=== PATIENT | female | born 1990 | race Caucasian/White ===

== ENCOUNTER 2016-07-29 19:44 | Inpatient (IN) | payer OTHER ==
[~2016-07-29] VITALS: Ht 167.6 cm; Wt 90.7 kg
[~2016-07-29 19:44] MED LIST: NOCURR
[2016-07-29] MEDS ORDERED: RINGERS SOLUTION,LACTATED 1,000 ML IV ONE (20:48)
[2016-07-29] MEDS ORDERED: OXYTOCIN 30 UNITS/LACT RINGERS 500 ML IV ONE (20:48)
[2016-07-29] MEDS ORDERED: CITRIC ACID/SODIUM CITRATE 30 ML SOLUTION UDCUP PO PRN (21:00)
[2016-07-29] MEDS ORDERED: LIDOCAINE HCL/PF 1% 30 ML VIAL INJ PRN (21:00)
[2016-07-29] MEDS ORDERED: METOCLOPRAMIDE HCL 5 MG/ML 2 ML VIAL IVP PRN (21:00)
[2016-07-29 21:14] LABS: BASOPHILS % (AUTO) 0.3 % (0.0-2.0); EOSINOPHILS % (AUTO) 0.7 % (1.0-6.0); HEMATOCRIT 33.6 % (36-46); HEMOGLOBIN 10.9 g/dL (12.0-16.0); LYMPHOCYTES # (AUTO) 2.1 K/uL (1.0-4.8); LYMPHOCYTES % (AUTO) 22.1 % (22.0-44.0); MEAN CORPUSCULAR HEMOGLOBIN 29.1 pg (26.0-34.0); MEAN CORPUSCULAR HGB CONC 32.5 G/dL (31.0-37.0); MEAN CORPUSCULAR VOLUME 90 fL (80-100); MONOCYTES # (AUTO) 0.8 K/uL (0.1-1.0); MONOCYTES % (AUTO) 8.3 % (2.0-9.0); NEUTROPHILS # (AUTO) 6.4 K/uL (1.8-7.7); NEUTROPHILS % (AUTO) 68.6 % (40.0-70.0); RED BLOOD CELL COUNT(AUTO) 3.75 MIL/uL (4.00-5.20); RED CELL DISTRIBUTION WIDTH 14.2 % (11.5-14.5); WHITE BLOOD COUNT (AUTO) 9.4 K/uL (4.5-11.0)
[2016-07-29 21:59] LABS: RUBELLA SCREEN (IGG) IMMUNE (IMMUNE)
[2016-07-29] MEDS ORDERED: AMPICILLIN SODIUM 2 GM/NS 100 ML IV ONE (22:45)
[2016-07-29] MEDS: RINGERS SOLUTION,LACTATED 1,000 ML IV SCH ×2 (22:46→23:31)
[2016-07-29] MEDS ORDERED: FentaNYL/BUPIV 0.125%/NS/PF 200 ML ED ONE (23:04)
[2016-07-30] MEDS ORDERED: AMPICILLIN SODIUM 1 GM/NS 50 ML IV SCH (02:45)
[2016-07-30] MEDS ORDERED: OXYTOCIN 30 UNITS/LACT RINGERS 500 ML IV ONE (04:49)
[2016-07-30] MEDS ORDERED: MAGNESIUM HYDROXIDE SUSPENSION 30 ML UDCUP PO PRN (05:00)
[2016-07-30] MEDS ORDERED: LANOLIN 7 GM OINTMENT TP PRN (05:00)
[2016-07-30] MEDS ORDERED: OxyCODONE HCL/ACETAMINOPHEN 5-325 MG TABLET PO PRN ×2 (05:00)
[2016-07-30] MEDS ORDERED: LIDOCAINE HCL/PF 1% 30 ML VIAL INJ PRN (05:00)
[2016-07-30] MEDS ORDERED: GLYCERIN/WITCH HAZEL LEAF 40 PADS JAR TP PRN (05:00)
[2016-07-30] MEDS ORDERED: BENZOCAINE 20%/MENTHOL 56 GM SPRAY CANISTER TP PRN (05:00)
[2016-07-30 05:27] VITALS: BP 130/62
[2016-07-30] MEDS: IBUPROFEN 800 MG TABLET PO PRN ×2 (09:26→20:12)
[2016-07-30 11:00] VITALS: BP 128/63
[2016-07-31] MEDS: IBUPROFEN 800 MG TABLET PO PRN (03:54)
[2016-07-31 06:08] LABS: BASOPHILS # (AUTO) 0.03 K/uL (0.00-0.20); BASOPHILS % (AUTO) 0.3 % (0.0-2.0); EOSINOPHILS # (AUTO) 0.12 K/uL (0.00-0.70); EOSINOPHILS % (AUTO) 1.08 % (1.0-6.0); HEMATOCRIT 31.7 % (36-46); HEMOGLOBIN 10.7 g/dL (12.0-16.0); LYMPHOCYTES # (AUTO) 2.4 K/uL (1.0-4.8); LYMPHOCYTES % (AUTO) 22.2 % (22.0-44.0); MEAN CORPUSCULAR HEMOGLOBIN 30.6 pg (26.0-34.0); MEAN CORPUSCULAR HGB CONC 33.6 G/dL (31.0-37.0); MEAN CORPUSCULAR VOLUME 91 fL (80-100); MONOCYTES # (AUTO) 0.8 K/uL (0.1-1.0); MONOCYTES % (AUTO) 7.4 % (2.0-9.0); NEUTROPHILS # (AUTO) 7.5 K/uL (1.8-7.7); NEUTROPHILS % (AUTO) 69.1 % (40.0-70.0); RED BLOOD CELL COUNT(AUTO) 3.49 MIL/uL (4.00-5.20); RED CELL DISTRIBUTION WIDTH 14.3 % (11.5-14.5); WHITE BLOOD COUNT (AUTO) 10.8 K/uL (4.5-11.0)
[2016-07-31] MEDS ORDERED: IBUP-2070 PO (09:40)
[2016-07-31] MEDS ORDERED: DSS100 PO (09:41)
[2016-07-31] MEDS ORDERED: FERR-89 PO (09:43)
== END 2016-07-31 10:30 | disposition home or self-care (01) | DRG 775 ==
LOC: OBSVTOIN 19:44 → 4S 19:44
PROVIDERS: ADMIT Obstetrics & Gynecology; ATTEND Obstetrics & Gynecology
PROC: 10E0XZZ Delivery of Products of Conception, External Approach (ICD-10-PCS; principal; 2016-07-30)
DX: O99.824 Streptococcus B carrier state complicating childbirth (principal); Z37.0 Single live birth; Z3A.39 39 weeks gestation of pregnancy
CPT/HCPCS: 76811; 80307; 86592; 86762; 86850; 86900; 86901; 87340; 88307; J0290; J2590; J3490; J7120

== ENCOUNTER 2022-01-04 09:52 | Emergency (ER) | payer MEDICAID, OTHER, SELFPAY ==
[~2022-01-04] VITALS: Ht 167.6 cm; Wt 97.7 kg
[~2022-01-04 09:52] MED LIST changes: +DSS100 PO; +FERR325T27 PO; +IBUP-2070 PO; -NOCURR
[2022-01-04] MEDS ORDERED: TOPI100T37 PO (10:07)
[2022-01-04] MEDS ORDERED: BUPR200T8 PO (10:07)
[2022-01-04] MEDS ORDERED: ARIP15TA27 PO (10:07)
[2022-01-04] MEDS ORDERED: FLUO40CA PO (10:07)
[2022-01-04] MEDS ORDERED: SODIUM CHLORIDE 0.9% 1,000 ML IV ONE (10:15)
[2022-01-04] MEDS ORDERED: ONDANSETRON HCL 4 MG/2 ML VIAL IVP ONE (10:15)
[2022-01-04 10:16] LABS: COVID AG,FIA SOURCE NASAL SWAB
[2022-01-04 10:42] LABS: INFLUENZA TYPE A NEGATIVE FOR TYPE A (NEGATIVE); INFLUENZA TYPE B NEGATIVE FOR TYPE B (NEGATIVE)
[2022-01-04 10:47] LABS: BASOPHILS % (AUTO) 0.7 % (0.0-2.0); EOSINOPHILS % (AUTO) 1.2 % (1.0-6.0); HEMATOCRIT 33.5 % (36-46); HEMOGLOBIN 10.5 g/dL (12.0-16.0); LYMPHOCYTES % (AUTO) 23.9 % (22.0-44.0); MEAN CORPUSCULAR HEMOGLOBIN 25.3 pg (26.0-34.0); MEAN CORPUSCULAR HGB CONC 31.3 G/dL (31.0-37.0); MEAN CORPUSCULAR VOLUME 81 fL (80-100); MONOCYTES # (AUTO) 0.9 K/uL (0.1-1.0); MONOCYTES % (AUTO) 10.9 % (2.0-9.0); NEUTROPHILS # (AUTO) 5.3 K/uL (1.8-7.7); NEUTROPHILS % (AUTO) 63.3 % (40.0-70.0); PLATELET COUNT (AUTO) 218 K/uL (150-450); RED BLOOD CELL COUNT(AUTO) 4.15 MIL/uL (4.00-5.20); RED CELL DISTRIBUTION WIDTH 16.5 % (11.5-14.5)
[2022-01-04] MEDS ORDERED: ACETAMINOPHEN 500 MG TABLET PO ONE (11:00)
[2022-01-04] MEDS ORDERED: ONDANSETRON HCL 4 MG TABLET PO ONE (11:00)
[2022-01-04] MEDS ORDERED: ATOM80CA3 PO (11:15)
[2022-01-04 12:01] LABS: ANION GAP 10 mmol/L (8-16); CALCIUM, TOTAL 8.5 mg/dL (8.8-10.5); CARBON DIOXIDE 23 mmol/L (22-29); CHLORIDE 105 mmol/L (98-107); CREATININE 0.93 mg/dL (0.60-1.30); GLUCOSE,RANDOM 87 mg/dL (70-110); POTASSIUM 3.3 mmol/L (3.5-5.1); SODIUM SERUM 138 mmol/L (136-145); UREA NITROGEN, BLOOD 11 mg/dL (7-18)
[2022-01-04 12:03] LABS: APPEARANCE,URINE CLEAR (CLEAR); BILIRUBIN,URINE NEGATIVE (NEGATIVE); GLUCOSE, URINE (UA) NEGATIVE (NEGATIVE); KETONES,URINE NEGATIVE (NEGATIVE); LEUKOCYTE ESTERASE ,URINE TRACE (NEGATIVE); NITRATE,URINE NEGATIVE (NEGATIVE); OCCULT BLOOD,URINE MODERATE (NEGATIVE); PH,URINE 7.5 (5.0-8.0); PROTEIN,URINE NEGATIVE (NEGATIVE); SPECIFIC GRAVITIY, URINE 1.012 (1.003-1.030); UROBILINOGEN,URINE <=1.0 mg/dL (<=1.0)
[2022-01-04 12:03] LABS: GLOMERULAR FILTR. RATE CALC > 60 mL/min (>60)
[2022-01-04 12:13] LABS: ALANINE AMINOTRANSFERASE 20 U/L (12-78); ALBUMIN 3.4 g/dL (3.4-5.0); ASPARTATE AMINOTRANSFERASE 22 U/L (15-37); BILIRUBIN,TOTAL 0.1 mg/dL (0.1-1.0); HCG,QUANTITATIVE < 1 mIU/mL (0-6); LIPASE 154 U/L (73-393); TOTAL PROTEIN, SERUM 7.5 g/dL (6.4-8.2)
[2022-01-04 12:21] LABS: BACTERIA,URINE None Seen /HPF (None Seen); RBC,URINE 0-2 /HPF (0-2); SQUAMOUS EPITHELIAL CELL,UR Few /LPF (None Seen); WBC,URINE None Seen /HPF (0-5)
[2022-01-04 12:39] LABS: ALKALINE PHOSPHATASE 77 U/L (46-116)
[2022-01-04] MEDS ORDERED: POTASSIUM CHLORIDE 20 MEQ ER TABLET PO ONE (13:15)
[2022-01-04] MEDS ORDERED: ONDA-104 PO (14:38)
[2022-01-04 14:55] VITALS: BP 128/85
== END 2022-01-04 15:00 | disposition home or self-care (01) ==
LOC: EMS 10:01
DX: B34.9 Viral infection, unspecified (principal); Z20.822 Contact with and (suspected) exposure to COVID-19; F10.20 Alcohol dependence, uncomplicated; K92.1 Melena
CPT/HCPCS: 99284; 87426; 80053; 81001; 83690; 84702; 85025; 87804; 36415; Q0162; J2405

== ENCOUNTER 2022-11-16 12:29 | Emergency (ER) | payer OTHER ==
[~2022-11-16] VITALS: Ht 167.6 cm; Wt 86.4 kg
[~2022-11-16 12:29] MED LIST changes: +ARIP15TA27 PO; +ATOM80CA3 PO; +BUPR200T8 PO; -DSS100 PO; -FERR325T27 PO; +FLUO40CA PO; -IBUP-2070 PO; +ONDA-104 PO; +TOPI100T37 PO
[2022-11-16 12:38] VITALS: TEMP 97.5
[2022-11-16 14:13] VITALS: BP 115/58; PULSE 71; RESP 16
[2022-11-16] MEDS ORDERED: IBUP-1554 PO (14:58)
[2022-11-16] MEDS ORDERED: HYDR-4072 PO (14:58)
[2022-11-16] MEDS ORDERED: METH-812 PO (14:58)
== END 2022-11-16 15:06 | disposition home or self-care (01) ==
LOC: EMS 12:38
DX: M62.838 Other muscle spasm (principal); R20.0 Anesthesia of skin; F41.9 Anxiety disorder, unspecified; F32.A Depression, unspecified; F17.210 Nicotine dependence, cigarettes, uncomplicated; F12.90 Cannabis use, unspecified, uncomplicated
CPT/HCPCS: 99283; Z7502

== ENCOUNTER 2022-11-30 16:59 | Emergency (ER) | payer OTHER ==
[~2022-11-30] VITALS: Ht 167.6 cm; Wt 86.4 kg
[~2022-11-30 16:59] MED LIST changes: -ARIP15TA27 PO; -ATOM80CA3 PO; -BUPR200T8 PO; -FLUO40CA PO; +HYDR-4072 PO; +IBUP-1554 PO; +METH-812 PO; -ONDA-104 PO; -TOPI100T37 PO
[2022-11-30 19:00] LABS: BASOPHILS % (AUTO) 0.6 % (0.0-2.0); EOSINOPHILS % (AUTO) 4.9 % (1.0-6.0); HEMATOCRIT 38.9 % (36-46); HEMOGLOBIN 12.8 g/dL (12.0-16.0); LYMPHOCYTES # (AUTO) 2.4 K/uL (1.0-4.8); LYMPHOCYTES % (AUTO) 36.9 % (22.0-44.0); MEAN CORPUSCULAR HEMOGLOBIN 29.6 pg (26.0-34.0); MEAN CORPUSCULAR HGB CONC 32.9 G/dL (31.0-37.0); MEAN CORPUSCULAR VOLUME 90 fL (80-100); MONOCYTES # (AUTO) 0.6 K/uL (0.1-1.0); MONOCYTES % (AUTO) 9.6 % (2.0-9.0); NEUTROPHILS # (AUTO) 3.1 K/uL (1.8-7.7); PLATELET COUNT (AUTO) 232 K/uL (150-450); RED BLOOD CELL COUNT(AUTO) 4.33 MIL/uL (4.00-5.20); RED CELL DISTRIBUTION WIDTH 14.2 % (11.5-14.5); WHITE BLOOD COUNT (AUTO) 6.5 K/uL (4.5-11.0)
[2022-11-30 19:07] LABS: ANION GAP 7 mmol/L (8-16); CALCIUM, TOTAL 8.9 mg/dL (8.8-10.5); CARBON DIOXIDE 29 mmol/L (22-29); CHLORIDE 103 mmol/L (98-107); CREATININE 0.65 mg/dL (0.60-1.30); GLOMERULAR FILTR. RATE CALC > 60 mL/min (>60); GLUCOSE,RANDOM 84 mg/dL (70-110); POTASSIUM 3.9 mmol/L (3.5-5.1); SODIUM SERUM 139 mmol/L (136-145); UREA NITROGEN, BLOOD 18 mg/dL (7-18)
[2022-11-30 19:13] LABS: ALANINE AMINOTRANSFERASE 22 U/L (12-78); ALBUMIN 3.4 g/dL (3.4-5.0); ALKALINE PHOSPHATASE 81 U/L (46-116); ASPARTATE AMINOTRANSFERASE 18 U/L (15-37); BILIRUBIN,TOTAL 0.3 mg/dL (0.1-1.0); TOTAL PROTEIN, SERUM 6.7 g/dL (6.4-8.2)
[2022-11-30] MEDS ORDERED: IBUP-1554 PO (19:47)
[2022-11-30 20:00] VITALS: BP 126/75; PULSE 99; RESP 16; TEMP 98.3
== END 2022-11-30 21:23 | disposition home or self-care (01) ==
LOC: EMS 16:59
DX: M79.10 Myalgia, unspecified site (principal); L85.3 Xerosis cutis; F15.10 Other stimulant abuse, uncomplicated; F41.9 Anxiety disorder, unspecified; F32.A Depression, unspecified; F17.210 Nicotine dependence, cigarettes, uncomplicated; F12.90 Cannabis use, unspecified, uncomplicated
CPT/HCPCS: 80053; 84703; 85025; 99283

== ENCOUNTER 2023-02-10 21:40 | Emergency (ER) | payer MEDICAID, OTHER ==
[~2023-02-10] VITALS: Ht 167.6 cm; Wt 83.4 kg
[2023-02-10 21:45] VITALS: TEMP 97.9
[2023-02-10] MEDS ORDERED: KETOROLAC TROMETHAMINE 30 MG/ML VIAL IM ONE (23:45)
[2023-02-10] MEDS ORDERED: ACETAMINOPHEN 500 MG TABLET PO ONE (23:45)
[2023-02-11 00:08] VITALS: BP 124/65; PULSE 82; RESP 18
[2023-02-11 00:13] LABS: ANION GAP 4 mmol/L (8-16); CALCIUM, TOTAL 8.7 mg/dL (8.8-10.5); CARBON DIOXIDE 32 mmol/L (22-29); CHLORIDE 103 mmol/L (98-107); CREATININE 0.66 mg/dL (0.60-1.30); GLOMERULAR FILTR. RATE CALC > 60 mL/min (>60); GLUCOSE,RANDOM 78 mg/dL (70-110); POTASSIUM 3.7 mmol/L (3.5-5.1); SODIUM SERUM 139 mmol/L (136-145); UREA NITROGEN, BLOOD 13 mg/dL (7-18)
[2023-02-11] MEDS ORDERED: IBUP-1492 PO (00:28)
== END 2023-02-11 00:40 | disposition home or self-care (01) ==
LOC: EMS 21:41
DX: R20.2 Paresthesia of skin (principal); F41.9 Anxiety disorder, unspecified; F32.A Depression, unspecified; F17.210 Nicotine dependence, cigarettes, uncomplicated; F12.90 Cannabis use, unspecified, uncomplicated
CPT/HCPCS: 99283; 80048; 84703; 36415; 96372; J1885

== ENCOUNTER 2023-08-24 13:59 | Emergency (ER) | payer MEDICAID, OTHER ==
[~2023-08-24] VITALS: Ht 167.6 cm; Wt 59.1 kg
[~2023-08-24 13:59] MED LIST changes: +IBUP-1492 PO
[2023-08-24 14:00] VITALS: TEMP 98.2
[2023-08-24] MEDS ORDERED: METH5SOL20 PO (14:04)
[2023-08-24 14:10] LABS: COVID AG,FIA SOURCE NASAL SWAB
[2023-08-24 14:33] LABS: SARS-COV2 (COVID) ANTIGEN,FIA Negative (Negative)
[2023-08-24 14:35] LABS: INFLUENZA TYPE A NEGATIVE FOR TYPE A (NEGATIVE); INFLUENZA TYPE B NEGATIVE FOR TYPE B (NEGATIVE)
[2023-08-24 14:40] VITALS: BP 117/50; PULSE 78; RESP 18
[2023-08-24] MEDS ORDERED: ALBU18HF12 IH (14:49)
[2023-08-24] MEDS ORDERED: AZIT250T9 PO (14:49)
== END 2023-08-24 15:20 | disposition home or self-care (01) ==
LOC: EMS 13:59
DX: J98.4 Other disorders of lung (principal); F41.9 Anxiety disorder, unspecified; F32.A Depression, unspecified; F17.210 Nicotine dependence, cigarettes, uncomplicated; F12.90 Cannabis use, unspecified, uncomplicated; Z20.822 Contact with and (suspected) exposure to COVID-19
CPT/HCPCS: 84702; 87804; 99283

== ENCOUNTER 2024-08-13 17:45 | Emergency (ER) | payer MEDICAID, OTHER ==
[~2024-08-13] VITALS: Ht 167.6 cm; Wt 68.0 kg
[~2024-08-13 17:45] MED LIST changes: +ALBU18HF12 IH; -HYDR-4072 PO; -IBUP-1492 PO; -IBUP-1554 PO; -METH-812 PO; +METH5SOL20 PO
[2024-08-13 20:31] VITALS: BP 119/63; PULSE 71; RESP 18; TEMP 97.3; O2SAT 100
[2024-08-13] MEDS: METHADONE HCL 10 MG TABLET PO ONE (20:43)
== END 2024-08-13 20:46 | disposition home or self-care (01) ==
LOC: EMS 17:45
DX: F11.90 Opioid use, unspecified, uncomplicated (principal); F32.A Depression, unspecified; F41.9 Anxiety disorder, unspecified; F12.90 Cannabis use, unspecified, uncomplicated; F17.210 Nicotine dependence, cigarettes, uncomplicated; Z79.899 Other long term (current) drug therapy
CPT/HCPCS: 99283

== ENCOUNTER 2024-08-14 12:30 | Emergency (ER) | payer MEDICAID ==
[~2024-08-14] VITALS: Ht 167.6 cm; Wt 72.7 kg
[2024-08-14 12:45] VITALS: TEMP 99
[2024-08-14] MEDS: METHADONE HCL 10 MG TABLET PO ONE (15:14)
[2024-08-14 15:16] VITALS: BP 125/55; PULSE 65; RESP 18; O2SAT 100
== END 2024-08-14 15:17 | disposition home or self-care (01) ==
LOC: EMS 12:30
DX: F41.9 Anxiety disorder, unspecified (principal); F32.A Depression, unspecified; F12.90 Cannabis use, unspecified, uncomplicated; F11.90 Opioid use, unspecified, uncomplicated; F17.210 Nicotine dependence, cigarettes, uncomplicated; Z76.0 Encounter for issue of repeat prescription; Z79.899 Other long term (current) drug therapy
CPT/HCPCS: 99283

== ENCOUNTER 2024-10-02 12:18 | Emergency (ER) | payer MEDICAID, OTHER ==
[~2024-10-02] VITALS: Ht 167.6 cm; Wt 81.8 kg
[2024-10-02 12:36] VITALS: BP 106/58; PULSE 78; RESP 18; TEMP 98; O2SAT 98
[2024-10-02] MEDS ORDERED: IBUP-1554 PO (14:27)
[2024-10-02] MEDS ORDERED: CEPH-558 PO (14:27)
== END 2024-10-02 14:59 | disposition home or self-care (01) ==
LOC: EMS 12:28
DX: L03.211 Cellulitis of face (principal); L73.9 Follicular disorder, unspecified; F41.9 Anxiety disorder, unspecified; F32.A Depression, unspecified; F17.210 Nicotine dependence, cigarettes, uncomplicated; F11.90 Opioid use, unspecified, uncomplicated; F12.90 Cannabis use, unspecified, uncomplicated; Z79.899 Other long term (current) drug therapy
CPT/HCPCS: 99283; Z7502

== ENCOUNTER 2024-12-03 12:03 | Emergency (ER) | payer OTHER ==
[~2024-12-03] VITALS: Ht 170.2 cm; Wt 81.8 kg
[~2024-12-03 12:03] MED LIST changes: +CEPH-558 PO; +IBUP-1554 PO
[2024-12-03 12:07] VITALS: BP 108/52; PULSE 55; RESP 18; TEMP 98.2; O2SAT 99
[2024-12-03] MEDS ORDERED: FLUO10TA PO (12:10)
[2024-12-03] MEDS ORDERED: HYDR-3831 PO (12:10)
[2024-12-03] MEDS: METHADONE HCL 10 MG TABLET PO ONE (13:04)
== END 2024-12-03 13:23 | disposition home or self-care (01) ==
LOC: EMS 12:03
DX: F11.10 Opioid abuse, uncomplicated (principal); F32.A Depression, unspecified; F41.9 Anxiety disorder, unspecified; F17.210 Nicotine dependence, cigarettes, uncomplicated; F12.90 Cannabis use, unspecified, uncomplicated; Z79.899 Other long term (current) drug therapy
CPT/HCPCS: 99283

== ENCOUNTER 2024-12-04 10:24 | Emergency (ER) | payer OTHER ==
[~2024-12-04] VITALS: Ht 170.2 cm; Wt 81.8 kg
[~2024-12-04 10:24] MED LIST changes: -ALBU18HF12 IH; -CEPH-558 PO; +FLUO10TA PO; +HYDR-3831 PO; -IBUP-1554 PO
[2024-12-04 10:27] VITALS: BP 137/60; PULSE 55; RESP 18; TEMP 97.7; O2SAT 100
== END 2024-12-04 11:57 | disposition home or self-care (01) ==
LOC: EMS 10:24
DX: F11.10 Opioid abuse, uncomplicated (principal); F12.90 Cannabis use, unspecified, uncomplicated; F17.210 Nicotine dependence, cigarettes, uncomplicated; F32.A Depression, unspecified; F41.9 Anxiety disorder, unspecified; Z79.899 Other long term (current) drug therapy; Z76.0 Encounter for issue of repeat prescription
CPT/HCPCS: 99281; 99282; Z7502

== ENCOUNTER 2025-02-15 20:22 | Emergency (ER) | payer OTHER ==
[~2025-02-15] VITALS: Ht 170.2 cm; Wt 86.4 kg
[2025-02-15 20:28] VITALS: TEMP 99
[2025-02-15 20:49] LABS: APPEARANCE,URINE HAZY (CLEAR); GLUCOSE, URINE (UA) NEGATIVE (NEGATIVE); LEUKOCYTE ESTERASE ,URINE LARGE (NEGATIVE); NITRATE,URINE NEGATIVE (NEGATIVE); OCCULT BLOOD,URINE NEGATIVE (NEGATIVE); PH,URINE DRUG SCREEN 7.5 (5.0-8.0); SPECIFIC GRAVITIY, URINE 1.020 (1.003-1.030)
[2025-02-15 20:56] LABS: ALCOHOL, URINE DRUG SCREEN NEGATIVE (NEGATIVE); AMPHET/METH SCREEN,URINE NEGATIVE (NEGATIVE); BARBITURATE SCREEN, URINE NEGATIVE (NEGATIVE); CANNABINOID SCREEN,URINE POSITIVE (NEGATIVE); COCAINE SCREEN,URINE NEGATIVE (NEGATIVE); METHADONE SCREEN, URINE NEGATIVE (NEGATIVE)
[2025-02-15 21:07] LABS: PLATELET COUNT (AUTO) 231 K/uL (150-450); RED BLOOD CELL COUNT(AUTO) 4.43 MIL/uL (4.00-5.20); RED CELL DISTRIBUTION WIDTH 14.6 % (11.5-14.5); WHITE BLOOD COUNT (AUTO) 7.8 K/uL (4.5-11.0)
[2025-02-15 21:12] LABS: CALCIUM, TOTAL 8.7 mg/dL (8.8-10.5); CREATININE 0.78 mg/dL (0.60-1.30); GLOMERULAR FILTR. RATE CALC > 60 mL/min (>60); GLUCOSE,RANDOM 123 mg/dL (70-110); SODIUM SERUM 140 mmol/L (136-145); UREA NITROGEN, BLOOD 11 mg/dL (7-18)
[2025-02-15 21:15] LABS: SQUAMOUS EPITHELIAL CELL,UR Moderate /LPF (None Seen)
[2025-02-16] MEDS: IBUPROFEN 400 MG TABLET PO ONE (00:26)
[2025-02-16] MEDS: ACETAMINOPHEN 500 MG TABLET PO ONE (00:26)
[2025-02-16] MEDS: CEPHALEXIN MONOHYDRATE 500 MG CAPSULE PO ONE (00:26)
[2025-02-16 00:30] VITALS: BP 128/75; PULSE 72; RESP 17; O2SAT 98
[2025-02-16] MEDS ORDERED: CEPH-558 PO (00:32)
== END 2025-02-16 00:46 | disposition home or self-care (01) ==
LOC: EMS 20:22
DX: N39.0 Urinary tract infection, site not specified (principal); R10.24 Suprapubic pain; F31.9 Bipolar disorder, unspecified; F17.210 Nicotine dependence, cigarettes, uncomplicated; F12.90 Cannabis use, unspecified, uncomplicated; F15.90 Other stimulant use, unspecified, uncomplicated; Z79.899 Other long term (current) drug therapy
CPT/HCPCS: 80048; 80307; 81001; 84703; 85025; 87086; 99284

== ENCOUNTER 2025-02-20 11:00 | Emergency (ER) | payer OTHER ==
[~2025-02-20] VITALS: Ht 170.2 cm; Wt 86.0 kg
[~2025-02-20 11:00] MED LIST changes: +CEPH-558 PO
[2025-02-20 11:25] VITALS: BP 112/68; PULSE 89; RESP 18; TEMP 97.9; O2SAT 99
[2025-02-20 11:40] LABS: COVID AG,FIA SOURCE NASAL SWAB
[2025-02-20 12:04] LABS: RAPID GROUP A STREP PRELIM. NEGATIVE (NEGATIVE)
[2025-02-20 12:10] LABS: INFLUENZA TYPE A NEGATIVE FOR TYPE A (NEGATIVE); INFLUENZA TYPE B NEGATIVE FOR TYPE B (NEGATIVE)
[2025-02-20 12:11] LABS: SARS-COV2 (COVID) ANTIGEN,FIA Negative (Negative)
[2025-02-20] MEDS ORDERED: PHEN1PAC8 PO (12:37)
[2025-02-20] MEDS ORDERED: BENZ1LOZ50 PO (12:37)
[2025-02-20] MEDS ORDERED: IBUP-1492 PO (12:37)
== END 2025-02-20 12:52 | disposition home or self-care (01) ==
LOC: EMS 11:00
DX: J02.8 Acute pharyngitis due to other specified organisms (principal); B97.89 Other viral agents as the cause of diseases classified elsewhere; F12.90 Cannabis use, unspecified, uncomplicated; F15.90 Other stimulant use, unspecified, uncomplicated; F17.210 Nicotine dependence, cigarettes, uncomplicated; R13.10 Dysphagia, unspecified; F31.9 Bipolar disorder, unspecified; Z79.899 Other long term (current) drug therapy; Z20.822 Contact with and (suspected) exposure to COVID-19
CPT/HCPCS: 87081; 87430; 87804; 99283